=== PATIENT | female | born 1945 | race Caucasian/White ===

== ENCOUNTER 2016-07-09 12:40 | Emergency (ER) | payer OTHER ==
[2016-07-09 13:07] VITALS: BP 157/101; PULSE 90; TEMP 99.3; BMI 27.4
[2016-07-09] MEDS ORDERED: AZITHROMYCIN 250 MG TABLET (FP) PO ONE (13:30)
[2016-07-09] MEDS ORDERED: AZITHROMYCIN 250 MG TABLET (FP) ONE (13:32)
--- NOTE | 2016-07-09 13:32 | PDOC ---
History of Present Illness - General Chief Complaint: Respiratory Stated Complaint: REVISIT FOR COUGH Time Seen by Provider: 07/09/16 12:57 History Source: Patient Exam Limitations: No Limitations - History of Present Illness Initial Comments: 07/09/16 13:32 71-year-old female with no past medical history presents for appproximately 5 days of upper respiratory infection and low-grade symptoms. Patient reports feeling generally worn down. MAXIMUM TEMPERATURE the 100.0. Denies sick contacts or recent travels. She has seen in urgent care and noted no improvement of symptoms with cough medications. Came to the ED for further evaluation. Denies chest pain or short of breath. Past History - Past Medical History Allergies/Adverse Reactions: Allergies Allergy/AdvReac Type Severity Reaction Status Date / Time No Known Allergies Allergy Verified 07/09/16 13:01 Home Medications: Ambulatory Orders Azithromycin 250 mg PO DAILY #4 tablet 07/09/16 - Psycho/Social/Smoking Cessation Hx Anxiety: No Suicidal Ideation: No Smoking History: Never smoked Hx Alcohol Use: No Drug/Substance Use Hx: No Substance Use Type: None Review of Systems - Review of Systems Able to Perform ROS?: Yes Comments:: 07/09/16 13:33 GENERAL/CONSTITUTIONAL: No fever, weakness. HEAD, EYES, EARS, NOSE AND THROAT: No change in vision. No ear pain or discharge. No sore throat. CARDIOVASCULAR: No chest pain or shortness of breath. RESPIRATORY: +Cough GASTROINTESTINAL: No abdominal pain, nausea, vomiting, diarrhea, or decreased PO intolerance. GENITOURINARY: No dysuria, frequency, or change in urination. MUSCULOSKELETAL: No joint or muscle swelling or pain. No neck or back pain. SKIN: No rash NEUROLOGIC: No headache, vertigo, loss of consciousness, or change in strength/ sensation. ENDOCRINE: No increased thirst. No abnormal weight change. HEMATOLOGIC/LYMPHATIC: No anemia, easy bleeding, or history of blood clots. ALLERGIC/IMMUNOLOGIC: No hives or skin allergy. *Physical Exam - Vital Signs Last Vital Signs Temp Pulse Resp BP Pulse Ox 99.3 F 90 15 157/101 96 07/09/16 12:56 07/09/16 12:56 07/09/16 12:56 07/09/16 12:56 07/09/16 12:56 - Physical Exam Comments: 07/09/16 13:33 GENERAL: Awake, alert, and fully oriented, in no acute distress. HEAD: No signs of trauma EYES: PERRLA, EOMI, sclera anicteric, conjunctiva clear ENT: Auricles normal inspection, hearing grossly normal, nares patent, oropharynx clear without exudates. NECK: Normal ROM, supple, no lymphadenopathy, JVD, or masses LUNGS: Breath sounds equal, clear to auscultation bilaterally. No wheezes, and no crackles HEART: Regular rate and rhythm, normal S1 and S2, no murmurs, rubs or gallops ABDOMEN: Soft, nontender, normoactive bowel sounds. No guarding, no rebound. No masses EXTREMITIES: Normal range of motion, no edema. No clubbing or cyanosis. No cords, erythema, or tenderness NEUROLOGICAL: Cranial nerves II through XII grossly intact. Normal speech, normal gait SKIN: Warm, Dry, normal turgor, no rashes or lesions noted. ED Treatment Course - RADIOLOGY Radiology Studies Ordered: Category Date Time Status CHEST PA & LAT [RAD] Stat Radiology 07/09/16 12:57 Completed Medical Decision Making - Medical Decision Making 07/09/16 13:33 Chest x-ray done shows no infiltrates. The patient is overall nontoxic- appearing but the patient is coughing sporadically throughout my physical exam. We'll treat patient as acute bronchitis. Initiate azithromycin and have the patient follow up with her PMD. I discussed the physical exam findings, ancillary test results and final diagnoses with the patient. I answered all of the patient's questions. The patient was satisfied with the care received and felt comfortable with the discharge plan and treatment plan. The patient will call their primary care physician within 24 hours to arrange follow-up and will return to the Emergency Department with any new, persistant or worsening symptoms. *DC/Admit/Observation/Transfer Diagnosis at time of Disposition: Bronchitis - Discharge Dispostion Disposition: HOME Condition at time of disposition: Good Admit: No - Prescriptions Prescriptions: Azithromycin 250 mg PO DAILY #4 tablet - Patient Instructions Printed Discharge Instructions: DI for Acute Bronchitis Additional Instructions: Your chest x-ray demonstrates no pneumonia at this time. However, I will treat as bronchitis. Please take the azithromycin as prescribed until completion. it may take several days before your symptoms start to improve. Drink plenty fluids and rest. Please follow-up with your doctor.
== END 2016-07-09 13:36 | disposition home or self-care (01) ==
LOC: FER 12:40
DX: J40 Bronchitis, not specified as acute or chronic (principal)
CPT/HCPCS: 71020-TC; 99281-25

== ENCOUNTER 2020-05-14 09:34 | Emergency (ER) | payer OTHER ==
[2020-05-14 09:57] VITALS: PULSE 95; TEMP 98.9; BMI 29.2
[2020-05-14 14:54] VITALS: BP 158/76
== END 2020-05-14 10:35 | disposition home or self-care (01) ==
LOC: FER 09:34
DX: S69.91XA Unspecified injury of right wrist, hand and finger(s), initial encounter (principal)
CPT/HCPCS: 73110-TC-RT-FY; 73130-TC-RT-FY; 99283-25

== ENCOUNTER 2020-08-31 06:43 | Day surgery (SDC) | payer OTHER ==
[2020-08-31] MEDS ORDERED: oxyCODONE HCL 5 MG TABLET PO PRN ×2 (07:58)
[2020-08-31] MEDS ORDERED: ONDANSETRON 4 MG/2 ML VIAL IVPUSH PRN (07:58)
[2020-08-31] MEDS ORDERED: LACTATED RINGERS SOLUTION 1,000 ML IV SCH (08:00)
[2020-08-31] MEDS ORDERED: MIDAZOLAM HCL 2 MG/2 ML SINGLE DOSE VIAL ONE (08:26)
[2020-08-31] MEDS ORDERED: PROPOFOL 20 ML ONE (08:27)
[2020-08-31] MEDS ORDERED: LIDOCAINE HCL 2% (50ML VIAL) NR ONE (08:42)
[2020-08-31 10:10] VITALS: BP 142/84; PULSE 79; TEMP 97.7
== END 2020-08-31 10:10 | disposition home or self-care (01) ==
LOC: FASU 06:43
PROVIDERS: ATTEND Orthopaedic Surgery Hand Surgery
PROC: 01N50ZZ Release Median Nerve, Open Approach (ICD-10-PCS; principal; 2020-08-31 08:15)
DX: G56.01 Carpal tunnel syndrome, right upper limb (principal)

== ENCOUNTER 2021-03-20 20:32 | Inpatient (IN) | payer OTHER ==
[2021-03-20] MEDS ORDERED: ONDANSETRON 4 MG/2 ML VIAL IVPUSH ONE (20:45)
[2021-03-20] MEDS ORDERED: KETOROLAC TROMETHAMINE 30 MG/1 ML VIAL IVPUSH ONE (20:45)
[2021-03-20] MEDS ORDERED: SODIUM CHLORIDE 1,000 ML IV ONE (20:45)
[2021-03-20] MEDS ORDERED: KETOROLAC TROMETHAMINE 30 MG/1 ML VIAL ONE (20:47)
[2021-03-20] MEDS ORDERED: ONDANSETRON 4 MG/2 ML VIAL ONE (20:47)
[2021-03-20 21:04] VITALS: BMI 30.9
[2021-03-20 21:20] LABS: ALBUMIN 4.4 g/dl (3.4-5.0); BILIRUBIN,TOTAL 1.4 mg/dl (0.2-1); CALCIUM 9.7 mg/dl (8.5-10); TOT PROT 7.4 g/dl (6.4-8.2)
[2021-03-20 21:20] LABS: EPITHELIAL CELLS MODERATE /hpf
[2021-03-20 22:22] LABS: BASO % 0.3 % (0-2.0); HEMATOCRIT 38.4 % (32.4-45.2); LYMPH % 3.5 % (8-40); MCH 29.5 pg (25.7-33.7); MCHC 33.8 g/dl (32.0-36.0); MEAN CELL VOLUME 87.2 fl (80-96); MEAN PLT VOLUME 7.5 fl (7.5-11.1); MONO % 5.8 % (3.8-10.2); NEUT % 90.4 % (42.8-82.8); PLATELET COUNT 210 10^3/uL (134-434); RDW 12.9 % (11.6-15.6); WHITE BLOOD COUNT 13.9 K/mm3 (4.0-10.0)
[2021-03-20] MEDS ORDERED: CEFTRIAXONE 1,000 MG in DEXTROSE 5%-WATER - 50 ML IVPB ONE (22:37)
[2021-03-20] MEDS ORDERED: cefTRIAXone SODIUM 1 GM VIAL ONE (22:40)
[2021-03-20] MEDS ORDERED: SODIUM CHLORIDE 1,000 ML IV SCH (23:30)
[2021-03-20] MEDS ORDERED: ACETAMINOPHEN 1000 MG/100 ML VIAL IVPB PRN (23:51)
[2021-03-21] MEDS ORDERED: SODIUM CHLORIDE 1,000 ML IV SCH (00:45)
[2021-03-21] MEDS ORDERED: CEFTRIAXONE 1 GM in DEXTROSE 5%-WATER - 50 ML IVPB SCH (10:00)
[2021-03-21] MEDS ORDERED: PIPERACILLIN/TAZOB 3.375 GM 3.375 GM in DEXTROSE 5%-WATER - 50 ML IVPB SCH ×2 (10:00→18:00)
[2021-03-21] MEDS ORDERED: PIPERACILLIN/TAZOBACTAM 3.375 GM VIAL IVPB ONE ×2 (10:01→18:11)
[2021-03-21] MEDS ORDERED: DEXTROSE 5%-WATER - 50 ML IVPB ONE ×2 (10:01→18:11)
[2021-03-21 12:34] LABS: ALBUMIN 3.2 g/dl (3.4-5.0); BILIRUBIN,TOTAL 1.4 mg/dl (0.2-1); CALCIUM 8.5 mg/dl (8.5-10); CREATININE 1.6 mg/dl (0.55-1.3); TOT PROT 5.8 g/dl (6.4-8.2)
[2021-03-21 14:18] LABS: BASO % 0.3 % (0-2.0); EOS % 0.1 % (0-4.5); HEMATOCRIT 32.2 % (32.4-45.2); HEMOGLOBIN 10.8 GM/dL (10.7-15.3); LYMPH % 3.5 % (8-40); MCH 29.4 pg (25.7-33.7); MCHC 33.6 g/dl (32.0-36.0); MEAN CELL VOLUME 87.5 fl (80-96); MEAN PLT VOLUME 7.4 fl (7.5-11.1); MONO % 7.3 % (3.8-10.2); NEUT % 88.8 % (42.8-82.8); PLATELET COUNT 157 10^3/uL (134-434); RBC 3.68 M/mm3 (3.60-5.2); WHITE BLOOD COUNT 13.2 K/mm3 (4.0-10.0)
[2021-03-21] MEDS ORDERED: ACETAMINOPHEN 1000 MG/100 ML VIAL IVPB PRN (14:21)
[2021-03-21] MEDS: SODIUM CHLORIDE 1,000 ML IV SCH (18:23)
[2021-03-21] MEDS: PIPERACILLIN/TAZOB 3.375 GM 3.375 GM in DEXTROSE 5%-WATER - 50 ML IVPB SCH (18:23)
[2021-03-21] MEDS ORDERED: MELATONIN 5 MG TABLETS PO ONE (20:39)
[2021-03-22] MEDS ORDERED: PIPERACILLIN/TAZOBACTAM 3.375 GM VIAL IVPB ONE ×3 (00:58→16:52)
[2021-03-22] MEDS ORDERED: DEXTROSE 5%-WATER - 50 ML IVPB ONE ×3 (00:58→16:53)
[2021-03-22] MEDS: PIPERACILLIN/TAZOB 3.375 GM 3.375 GM in DEXTROSE 5%-WATER - 50 ML IVPB SCH ×3 (01:23→17:05)
[2021-03-22] MEDS: SODIUM CHLORIDE 1,000 ML IV SCH (06:10)
[2021-03-22] MEDS ORDERED: ACETAMINOPHEN 325 MG TABLET (FP) PO PRN ×2 (11:45→15:09)
[2021-03-22] MEDS ORDERED: MELATONIN 5 MG TABLETS PO PRN ×2 (11:45→15:09)
[2021-03-22] MEDS ORDERED: ceFAZolin SODIUM 1 GM VIAL IVPB ONE (12:52)
[2021-03-22] MEDS ORDERED: PROPOFOL 20 ML ONE ×2 (14:31→14:37)
[2021-03-22] MEDS ORDERED: SODIUM CHLORIDE 1,000 ML IV SCH (15:09)
[2021-03-23] MEDS ORDERED: PIPERACILLIN/TAZOBACTAM 3.375 GM VIAL IVPB ONE ×2 (02:04→10:36)
[2021-03-23] MEDS ORDERED: DEXTROSE 5%-WATER - 50 ML IVPB ONE ×2 (02:04→10:36)
[2021-03-23] MEDS: PIPERACILLIN/TAZOB 3.375 GM 3.375 GM in DEXTROSE 5%-WATER - 50 ML IVPB SCH ×2 (02:06→10:41)
[2021-03-23 08:56] LABS: HEMATOCRIT 35.8 % (32.4-45.2); HEMOGLOBIN 12.2 GM/dL (10.7-15.3); MCH 30.1 pg (25.7-33.7); MEAN CELL VOLUME 88.5 fl (80-96); MEAN PLT VOLUME 7.8 fl (7.5-11.1); PLATELET COUNT 179 10^3/uL (134-434); RBC 4.05 M/mm3 (3.60-5.2); RDW 13.2 % (11.6-15.6); WHITE BLOOD COUNT 9.8 K/mm3 (4.0-10.0)
[2021-03-23 09:21] LABS: ALBUMIN 2.9 g/dl (3.4-5.0); BLOOD UREA NITROGEN 22.3 mg/dL (7-18); CALCIUM 9.2 mg/dL (8.5-10.1); MAGNESIUM 2.1 mg/dL (1.8-2.4)
[2021-03-23 09:24] LABS: CREATININE 1.2 mg/dL (0.55-1.3)
[2021-03-23 09:26] LABS: BILIRUBIN,TOTAL 0.6 mg/dL (0.2-1); TOT PROT 6.5 g/dl (6.4-8.2)
[2021-03-23 15:48] VITALS: BP 174/96; PULSE 94; TEMP 98.6
== END 2021-03-23 15:48 | disposition home or self-care (01) | DRG 854 ==
LOC: FER 20:32 → FM/S 23:15 → UNDOADMIN 03-21 04:14 → J6S 03-21 13:49
PROVIDERS: ADMIT Internal Medicine
PROC: 0T778DZ Dilation of Left Ureter with Intraluminal Device, Via Natural or Artificial Opening Endoscopic (ICD-10-PCS; principal; 2021-03-22 13:00)
PROC: BT1FZZZ Fluoroscopy of Left Kidney, Ureter and Bladder (ICD-10-PCS; 2021-03-22 13:00)
DX: A41.9 Sepsis, unspecified organism (principal); N13.6 Pyonephrosis; N39.0 Urinary tract infection, site not specified; N17.9 Acute kidney failure, unspecified; E78.5 Hyperlipidemia, unspecified; D72.829 Elevated white blood cell count, unspecified; R10.32 Left lower quadrant pain
CPT/HCPCS: 36415; 71045-TC-FY; 74176-TC; 76000-TC-FY; 80053; 81003; 81015; 83735; 85025; 85027; 87040; 87086; 87186; 93005; 94760; 99285-25; C9803; J0131; U0003; U0005

== ENCOUNTER 2021-05-05 04:18 | Day surgery (SDC) | payer OTHER ==
[2021-05-03 12:18] VITALS: BMI 30.5
[2021-05-05 11:14] LABS: EPI CELLS 12 /uL (0-25.1); HYALINE CASTS 0 /uL (0-3.1); PH,URINE 6.5 (5.0-8.0); URINE APPEARANCE CLEAR; URINE BACTERIA 4 /uL (0-1359); URINE BILIRUBIN NEGATIVE (NEGATIVE); URINE COLOR YELLOW; URINE GLUCOSE (UA) NEGATIVE (NEGATIVE); URINE KETONE NEGATIVE (NEGATIVE); URINE LEUK ESTERASE TRACE (NEGATIVE); URINE NITRITE NEGATIVE (NEGATIVE); URINE PROTEIN TRACE (NEGATIVE); URINE RBC 255 /uL (0-23.9); URINE UROBILINOGEN 0.2 mg/dL (0.2-1.0); URINE WBC 21 /uL (0-25.8)
[2021-05-05] MEDS ORDERED: LIDOCAINE HCL/PF 2% SDV 5ML VIAL ONE (11:47)
[2021-05-05] MEDS ORDERED: PROPOFOL 20 ML ONE ×2 (11:47→11:48)
[2021-05-05] MEDS ORDERED: MIDAZOLAM HCL 2 MG/2 ML SINGLE DOSE VIAL ONE (11:47)
[2021-05-05] MEDS ORDERED: ePHEDrine SULFATE 50 MG/1 ML AMPULE ONE ×2 (11:55→12:10)
[2021-05-05] MEDS ORDERED: ceFAZolin SODIUM 1 GM VIAL IVPB ONE (11:58)
[2021-05-05] MEDS ORDERED: fentaNYL CITRATE 250 MCG/5 ML VIAL ONE (11:59)
[2021-05-05] MEDS ORDERED: ceFAZolin SODIUM 1 GM VIAL ONE (12:00)
[2021-05-05] MEDS ORDERED: SODIUM CHLORIDE 0.9% P/F 10 ML VIAL IJ ONE (12:12)
[2021-05-05] MEDS ORDERED: ACETAMINOPHEN 500 MG TABLET (FP) PO PRN (12:21)
[2021-05-05] MEDS ORDERED: ONDANSETRON 4 MG/2 ML VIAL IVPUSH PRN (12:21)
[2021-05-05] MEDS ORDERED: oxyCODONE HCL 5 MG TABLET PO PRN (12:21)
[2021-05-05] MEDS ORDERED: LACTATED RINGERS SOLUTION 1,000 ML IV SCH (12:30)
[2021-05-05 14:33] VITALS: BP 111/78; PULSE 70; TEMP 97.8
== END 2021-05-05 14:40 | disposition home or self-care (01) ==
LOC: JASU-SURG 04:18
PROVIDERS: ATTEND Urology
PROC: 0T578ZZ Destruction of Left Ureter, Via Natural or Artificial Opening Endoscopic (ICD-10-PCS; 2021-05-05)
PROC: 0T7D8DZ Dilation of Urethra with Intraluminal Device, Via Natural or Artificial Opening Endoscopic (ICD-10-PCS; principal; 2021-05-05 12:00)
PROC: 0TP98DZ Removal of Intraluminal Device from Ureter, Via Natural or Artificial Opening Endoscopic (ICD-10-PCS; 2021-05-05 12:00)
PROC: BT1FYZZ Fluoroscopy of Left Kidney, Ureter and Bladder using Other Contrast (ICD-10-PCS; 2021-05-05 12:00)
PROC: 0WHR8YZ Insertion of Other Device into Genitourinary Tract, Via Natural or Artificial Opening Endoscopic (ICD-10-PCS; 2021-05-05 12:00)
DX: N13.0 Hydronephrosis with ureteropelvic junction obstruction (principal)
CPT/HCPCS: 76000-TC-FY; 81003; 94760